=== PATIENT | female | born 1995 | race Caucasian/White ===

== ENCOUNTER 2019-01-03 03:00 | Emergency (ER) | payer BC ==
[2019-01-03] MEDS ORDERED: MORPHINE SULFATE 4 MG INJ IV ONE (03:26)
[2019-01-03] MEDS ORDERED: Sodium Chloride 0.9% 1000 ML 1,000 ML IV STA (03:26)
[2019-01-03] MEDS ORDERED: BENADRYL 50 MG/ML IV ONE (03:26)
[2019-01-03] MEDS ORDERED: Pepcid 20 MG VIAL IV ONE ×2 (03:26→03:34)
[2019-01-03] MEDS ORDERED: BENADRYL 50 MG/ML ONE (03:33)
[2019-01-03] MEDS ORDERED: MORPHINE SULFATE 4 MG INJ ONE (03:34)
[2019-01-03] MEDS ORDERED: Sodium Chloride 0.9% 1000 ML 1,000 ML ONE (03:34)
--- NOTE | 2019-01-03 03:43 | ERPHSYRPT ---
- History of Present Illness Time Seen by Provider: 01/03/19 03:25 Historian: patient Exam Limitations: no limitations Patient Subjective Stated Complaint: pt c/o diarrhea x4 pain, abd pain, gurgling , nausea Triage Nursing Assessment: PT AMBULATED TO RM 7, FRIENDS AT BEDSIDE. PT C/O DIARRHEA X4 DAYS, ABD PAIN AND GURGLING, INDIGESTION, NAUSEA BUT NO VOMITING. ABD SOFT WITH HYPERACTIVE BS X4 QUAD, NONTENDER ON PALPATION, STATES, "IT NAKUL GOES TO THE CENTER OF MY BACK". LUNGS CLEAR, HEART TONES REG. Physician History: Patient has had intermittent diarrhea with generalized abdominal cramping for the past four days. No recent travel history, no recent antibiotic usage, no history of hospitalization. Positive sick contact with similar type symptoms. Timing/Duration: day(s) (4), sudden Activities at Onset: none Quality: cramping Abdominal Pain Onset Location: generalized abdomen Pain Radiation: back Severity of Pain-Max: severe Severity of Pain-Current: moderate Modifying Factors: Worsens With: defecating Associated Symptoms: diarrhea, nausea, No back, No chest pain, No diaphoresis, No fever/chills, No fatigue, No headache, No heartburn, No loss of appetite, No neck pain, No rash, No shortness of breath, No syncope, No vomiting, No weakness Previous symptoms: no prior history, no recent treatment Allergies/Adverse Reactions: No Known Drug Allergies Allergy (Unverified 01/03/19 03:28) Home Medications: Medroxyprogesterone Acet [Depo-Provera] 150 mg IM CLARIFY 01/03/19 [History] Sertraline HCl 50 mg [Zoloft 50 mg Tablet] 50 mg PO HS 01/03/19 [History] Hx Tetanus, Diphtheria Vaccination/Date Given: No (UNKNOWN) Hx Influenza Vaccination/Date Given: No Hx Pneumococcal Vaccination/Date Given: No Immunizations Up to Date: No - Review of Systems Constitutional: No Fever, No Chills, No Fatigue Eyes: No Symptoms, No Vision Changes Ears, Nose, & Throat: No Symptoms, No Mouth Swelling, No Painful Swallowing Respiratory: No Cough, No Dyspnea Cardiac: No Chest Pain, No Edema, No Syncope Abdominal/Gastrointestinal: Abdominal Pain, Nausea, No Vomiting, No Diarrhea, No Hematemesis, No Hematochezia, No Melena Genitourinary Symptoms: No Dysuria, No Frequency, No Hematuria, No Flank Pain, No Vaginal Discharge Musculoskeletal: No Back Pain, No Neck Pain Skin: No Rash Neurological: No Dizziness, No Focal Weakness, No Headache, No Sensory Changes Psychological: No Symptoms Endocrine: No Symptoms, No Excessive Sweating All Other Systems: Reviewed and Negative - Past Medical History Pertinent Past Medical History: Yes Neurological History: No Pertinent History ENT History: Other Cardiac History: No Pertinent History Respiratory History: No Pertinent History Endocrine Medical History: No Pertinent History Musculoskeletal History: No Pertinent History, Fractures GI Medical History: GERD History: No Pertinent History Psycho-Social History: Anxiety, Depression Female Reproductive Disorders: No Pertinent History Other Medical History: FX LT ARM AGE 6, TROUBLE WITH VISION, BORN CROSSEYED - Past Surgical History Past Surgical History: Yes Neuro Surgical History: No Pertinent History Cardiac: No Pertinent History Respiratory: No Pertinent History Gastrointestinal: No Pertinent History Genitourinary: No Pertinent History Musculoskeletal: No Pertinent History Female Surgical History: No Pertinent History Other Surgical History: BORN CROSSEYED, 7 SURGERIES TO EYES - Social History Smoking Status: Former smoker Exposure to second hand smoke: No Drug Use: none Patient Lives Alone: No - Female History Hx Last Menstrual Period: UNKNOWN, ON SHOT Hx Now: No - Nursing Vital Signs Nursing Vital Signs: Initial Vital Signs Temperature 98.0 F 01/03/19 03:08 Pulse Rate 108 H 01/03/19 03:08 Respiratory Rate 17 01/03/19 03:08 Blood Pressure 150/97 01/03/19 03:08 O2 Sat by Pulse Oximetry 96 01/03/19 03:08 Pain Scale Pain Intensity 0 - Physical Exam General Appearance: no apparent distress, alert Eye Exam: PERRL/EOMI, eyes nml inspection, No scleral icterus, No pale conjunctivae Ears, Nose, Throat Exam: normal ENT inspection, pharynx normal, moist mucous membranes Neck Exam: normal inspection, non-tender, supple, full range of motion, No meningismus, No Brudzinski, No lymphadenopathy Respiratory Exam: normal breath sounds, lungs clear, No respiratory distress Cardiovascular Exam: regular rate/rhythm, normal heart sounds, normal peripheral pulses, capillary refill <2 sec Gastrointestinal/Abdomen Exam: soft, normal bowel sounds, No tenderness, No distention, No mass, No rebound Back Exam: normal inspection, normal range of motion, No CVA tenderness, No vertebral tenderness Extremity Exam: normal inspection, normal range of motion, pelvis stable Neurologic Exam: alert, oriented x 3, cooperative, maintainer plant II-XII nml as tested, normal mood/affect, nml cerebellar function, sensation nml, No motor deficits Skin Exam: normal color, warm, dry, No rash, No petechiae, No jaundice, No cyanosis SpO2 Interpretation: normal SpO2: 96 O2 Delivery: Room Air Ordered Tests: Active Orders 24 hr Category Date Time Status IV Insertion STAT Care 01/03/19 03:26 Active NPO (ED) STAT Care 01/03/19 03:26 Active AMYLASE Stat Lab 01/03/19 03:45 Completed CBC W DIFF Stat Lab 01/03/19 03:45 Completed CMP Stat Lab 01/03/19 03:45 Completed HCG,QUALITATIVE URINE Stat Lab 01/03/19 03:30 Completed LIPASE Stat Lab 01/03/19 03:45 Completed Lactic Acid Stat Lab 01/03/19 03:26 Completed MAG [MAGNESIUM] Stat Lab 01/03/19 03:45 Completed TROPONIN Q3H Lab 01/03/19 03:45 Completed TROPONIN Q3H Lab 01/03/19 06:30 Ordered TROPONIN Q3H Lab 01/03/19 09:30 Ordered TROPONIN Q3H Lab 01/03/19 12:30 Ordered TROPONIN Q3H Lab 01/03/19 15:30 Ordered UA W/RFX UR CULTURE Stat Lab 01/03/19 03:30 Completed Medication Summary Discontinued Medications Generic Name Dose Route Start Last Admin Trade Name Freq PRN Reason Stop Dose Admin Diphenhydramine HCl 25 mg 01/03/19 03:26 01/03/19 03:41 Benadryl 50 Mg/Ml IV 01/03/19 03:27 25 mg STAT ONE Administration Diphenhydramine HCl Confirm 01/03/19 03:33 Benadryl 50 Mg/Ml Administered 01/03/19 03:34 Dose 50 mg .ROUTE .STK-MED ONE Famotidine 20 mg 01/03/19 03:26 01/03/19 03:39 Pepcid 20 Mg Vial IV 01/03/19 03:27 20 mg STAT ONE Administration Famotidine Confirm 01/03/19 03:34 Pepcid 20 Mg Vial Administered 01/03/19 03:35 Dose 20 mg IV .STK-MED ONE Sodium Chloride 1,000 mls @ 999 mls/hr 01/03/19 03:26 01/03/19 03:37 Sodium Chloride 0.9% 1000 Ml IV 01/03/19 04:26 999 mls/hr .Q1H1M STA Administration Sodium Chloride Confirm 01/03/19 03:34 Sodium Chloride 0.9% 1000 Ml Administered 01/03/19 03:35 Dose 1,000 mls @ ud .ROUTE .STK-MED ONE Ketorolac Tromethamine 30 mg 01/03/19 03:46 01/03/19 03:51 Toradol 30 Mg Injection IV 01/03/19 03:47 30 mg STAT ONE Administration Ketorolac Tromethamine Confirm 01/03/19 03:50 Toradol 30 Mg Injection Administered 01/03/19 03:51 Dose 30 mg .ROUTE .STK-MED ONE Morphine Sulfate 4 mg 01/03/19 03:26 01/03/19 03:43 Morphine Sulfate 4 Mg Inj IV 01/03/19 03:27 4 mg STAT ONE Administration Morphine Sulfate Confirm 01/03/19 03:34 Morphine Sulfate 4 Mg Inj Administered 01/03/19 03:35 Dose 4 mg .ROUTE .STK-MED ONE Lab/Rad Data: Laboratory Result Diagrams 01/03/19 03:45 01/03/19 03:45 Laboratory Results 01/03/19 01/03/19 01/03/19 Range/Units 03:45 03:45 03:45 WBC (4.0-10.5) K/mm3 RBC (4.1-5.4) M/mm3 Hgb (12.0-16.0) gm/dl Hct (35-47) % MCV (78-100) fl MCH (26-32) pg MCHC (32-36) g/dl RDW (11.5-14.0) % Plt Count (150-450) K/mm3 MPV (6-9.5) fl Gran % (36.0-66.0) % Eos # (Auto) (0-0.5) Absolute Lymphs (auto) (1.0-4.6) Absolute Monos (auto) (0.0-1.3) Lymphocytes % (24.0-44.0) % Monocytes % (0.0-12.0) % Eosinophils % (0.00-5.0) % Basophils % (0.0-0.4) % Absolute Granulocytes (1.4-6.9) Basophils # (0-0.4) Sodium 143 (137-145) mmol/L Potassium 3.6 (3.5-5.1) mmol/L Chloride 109 H (98-107) mmol/L Carbon Dioxide 23 (22-30) mmol/L Anion Gap 14.8 (5-15) MEQ/L BUN 11 (7-17) mg/dL Creatinine 0.68 (0.52-1.04) mg/dL Estimated GFR > 60.0 ML/MIN Glucose 120 H (74-106) mg/dL Lactic Acid (0.4-2.0) Calcium 9.7 (8.4-10.2) mg/dL Magnesium 1.7 (1.6-2.3) mg/dL Total Bilirubin 0.50 (0.2-1.3) mg/dL AST 20 (14-36) U/L ALT 22 (0-35) U/L Alkaline Phosphatase 114 (38-126) U/L Troponin I < 0.012 (0.000-0.034) ng/mL Serum Total Protein 7.9 (6.3-8.2) g/dL Albumin 4.6 (3.5-5.0) g/dL Amylase (30-110) U/L Lipase (23-300) U/L Urine Color (YELLOW) Urine Appearance (CLEAR) Urine pH (5-6) Ur Specific Cutler (1.005-1.025) Urine Protein (Negative) Urine Ketones (NEGATIVE) Urine Blood (0-5) Jeff/ul Urine Nitrite (NEGATIVE) Urine Bilirubin (NEGATIVE) Urine Urobilinogen (0-1) mg/dL Ur Leukocyte Esterase (NEGATIVE) Urine WBC (Auto) (0-5) /HPF Urine RBC (Auto) (0-2) /HPF U Epithel Cells (Auto) (FEW) /HPF Urine Bacteria (Auto) (NEGATIVE) /HPF Urine Mucus (Auto) (NEGATIVE) /HPF Urine Culture Reflexed (NO) Urine Glucose (NEGATIVE) mg/dL Urine HCG, Qual (Negative) 01/03/19 01/03/1919 Range/Units 03:45 03:45 03:30 WBC 10.2 (4.0-10.5) K/mm3 RBC 4.86 (4.1-5.4) M/mm3 Hgb 13.9 (12.0-16.0) gm/dl Hct 42.0 (35-47) % MCV 86.4 (78-100) fl MCH 28.6 (26-32) pg MCHC 33.1 (32-36) g/dl RDW 13.7 (11.5-14.0) % Plt Count 229 (150-450) K/mm3 MPV 11.1 H (6-9.5) fl Gran % 64.7 (36.0-66.0) % Eos # (Auto) 0.39 (0-0.5) Absolute Lymphs (auto) 2.52 (1.0-4.6) Absolute Monos (auto) 0.69 (0.0-1.3) Lymphocytes % 24.6 (24.0-44.0) % Monocytes % 6.7 (0.0-12.0) % Eosinophils % 3.8 (0.00-5.0) % Basophils % 0.2 (0.0-0.4) % Absolute Granulocytes 6.62 (1.4-6.9) Basophils # 0.02 (0-0.4) Sodium (137-145) mmol/L Potassium (3.5-5.1) mmol/L Chloride (98-107) mmol/L Carbon Dioxide (22-30) mmol/L Anion Gap (5-15) MEQ/L BUN (7-17) mg/dL Creatinine (0.52-1.04) mg/dL Estimated GFR ML/MIN Glucose (74-106) mg/dL Lactic Acid (0.4-2.0) Calcium (8.4-10.2) mg/dL Magnesium (1.6-2.3) mg/dL Total Bilirubin (0.2-1.3) mg/dL AST (14-36) U/L ALT (0-35) U/L Alkaline Phosphatase (38-126) U/L Troponin I (0.000-0.034) ng/mL Serum Total Protein (6.3-8.2) g/dL Albumin (3.5-5.0) g/dL Amylase 68 (30-110) U/L Lipase 53 (23-300) U/L Urine Color YELLOW (YELLOW) Urine Appearance CLOUDY (CLEAR) Urine pH 5.0 (5-6) Ur Specific Cutler 1.029 (1.005-1.025) Urine Protein NEGATIVE (Negative) Urine Ketones NEGATIVE (NEGATIVE) Urine Blood NEGATIVE (0-5) Jeff/ul Urine Nitrite NEGATIVE (NEGATIVE) Urine Bilirubin NEGATIVE (NEGATIVE) Urine Urobilinogen 2 (0-1) mg/dL Ur Leukocyte Esterase NEGATIVE (NEGATIVE) Urine WBC (Auto) 0-2 (0-5) /HPF Urine RBC (Auto) 0-2 (0-2) /HPF U Epithel Cells (Auto) RARE (FEW) /HPF Urine Bacteria (Auto) RARE (NEGATIVE) /HPF Urine Mucus (Auto) SLIGHT (NEGATIVE) /HPF Urine Culture Reflexed NO (NO) Urine Glucose NEGATIVE (NEGATIVE) mg/dL Urine HCG, Qual (Negative) 01/03/19 01/03/19 Range/Units 03:30 03:26 WBC (4.0-10.5) K/mm3 RBC (4.1-5.4) M/mm3 Hgb (12.0-16.0) gm/dl Hct (35-47) % MCV (78-100) fl MCH (26-32) pg MCHC (32-36) g/dl RDW (11.5-14.0) % Plt Count (150-450) K/mm3 MPV (6-9.5) fl Gran % (36.0-66.0) % Eos # (Auto) (0-0.5) Absolute Lymphs (auto) (1.0-4.6) Absolute Monos (auto) (0.0-1.3) Lymphocytes % (24.0-44.0) % Monocytes % (0.0-12.0) % Eosinophils % (0.00-5.0) % Basophils % (0.0-0.4) % Absolute Granulocytes (1.4-6.9) Basophils # (0-0.4) Sodium (137-145) mmol/L Potassium (3.5-5.1) mmol/L Chloride (98-107) mmol/L Carbon Dioxide (22-30) mmol/L Anion Gap (5-15) MEQ/L BUN (7-17) mg/dL Creatinine (0.52-1.04) mg/dL Estimated GFR ML/MIN Glucose (74-106) mg/dL Lactic Acid 1.6 (0.4-2.0) Calcium (8.4-10.2) mg/dL Magnesium (1.6-2.3) mg/dL Total Bilirubin (0.2-1.3) mg/dL AST (14-36) U/L ALT (0-35) U/L Alkaline Phosphatase (38-126) U/L Troponin I (0.000-0.034) ng/mL Serum Total Protein (6.3-8.2) g/dL Albumin (3.5-5.0) g/dL Amylase (30-110) U/L Lipase (23-300) U/L Urine Color (YELLOW) Urine Appearance (CLEAR) Urine pH (5-6) Ur Specific Cutler (1.005-1.025) Urine Protein (Negative) Urine Ketones (NEGATIVE) Urine Blood (0-5) Jeff/ul Urine Nitrite (NEGATIVE) Urine Bilirubin (NEGATIVE) Urine Urobilinogen (0-1) mg/dL Ur Leukocyte Esterase (NEGATIVE) Urine WBC (Auto) (0-5) /HPF Urine RBC (Auto) (0-2) /HPF U Epithel Cells (Auto) (FEW) /HPF Urine Bacteria (Auto) (NEGATIVE) /HPF Urine Mucus (Auto) (NEGATIVE) /HPF Urine Culture Reflexed (NO) Urine Glucose (NEGATIVE) mg/dL Urine HCG, Qual NEGATIVE (Negative) - Progress Progress: improved Progress Note: 01/03/19 04:49 Abdominal cramping has resolved. No further nausea and no episodes of diarrhea while in the emergency department. Patient has no abdominal pain or CVA tenderness on repeat evaluation. Counseled pt/family regarding: lab results, diagnosis, need for follow-up - Departure Departure Disposition: Home Clinical Impression: Generalized abdominal cramping, Nausea, Elevated blood pressure reading without diagnosis of hypertension Diarrhea Qualifiers: Diarrhea type: unspecified type Qualified Code(s): R19.7 - Diarrhea, unspecified Condition: Good Critical Care Time: No Referrals: DONNA LYLE [Primary Care Provider] - 01/04/19 Instructions: Diarrhea and Traveler's Diarrhea, Adult (DC), Acute Abdomen ( Belly Pain), Adult (DC), Nausea and Vomiting, Adult (DC) Additional Instructions: Return immediately to the emergency department if any worse abdominal pain, new fever, uncontrollable diarrhea or vomiting or any other concerning signs and symptoms that were not present at today's emergency department visit for immediate re-evaluation in the emergency department. Discharge/Care Plan ORIANA MONTERO was seen on 01/03/19 in the Emergency Room. The patient was counseled regarding Diagnosis,Lab results, and need for follow up and when to return to the Emergency Room. Prescriptions given: Lomotil and Phenergan Discharge Note I have spoken with the patient and friends in the room. I have explained the patient's condition, diagnosis and treatment plan based on the information available to me at this time. I have answered the patient's and/or caregiver's questions and addressed any concerns. The patient and friends have as good understanding of the patient's diagnosis, condition and treatment plan as can be expected at this point. The vital signs have been stable. The patient's condition is stable and appropriate for discharge from the emergency department. The patient will pursue further outpatient evaluation with the primary care physician or other designated or consulting physician as outlined in the discharge instructions. The patient and friends are agreeable to this plan of care and follow-up instructions have been explained in detail. The patient and friends have received these instruction. The patient and friends are aware that any significant change in condition or worsening of symptoms should prompt an immediate return to this or the closest emergency department or call 911. Forms: Work/School Release Form Prescriptions: Promethazine HCl 25 mg [Phenergan 25 mg] 25 mg PO Q6H PRN PRN #12 tablet PRN Reason: Nausea Diphenoxylate HCl/Atropine [Lomotil Tablet] 1 each PO TID PRN #10 tablet PRN Reason: Diarrhea
[2019-01-03] MEDS ORDERED: TORAdol 30 mg Injection IV ONE (03:46)
[2019-01-03] MEDS ORDERED: TORAdol 30 mg Injection ONE (03:50)
[2019-01-03 03:54] LABS: Appearance CLOUDY (CLEAR); Bacteria RARE /HPF (NEGATIVE); Bilirubin NEGATIVE (NEGATIVE); Blood NEGATIVE Ery/ul (0-5); Epithelial Cells RARE /HPF (FEW); Glucose NEGATIVE (NEGATIVE); Ketones NEGATIVE (NEGATIVE); Leukocyte Esterase NEGATIVE (NEGATIVE); Mucus SLIGHT /HPF (NEGATIVE); Nitrite NEGATIVE (NEGATIVE); Protein,Urine Dip NEGATIVE (Negative); RBC 0-2 /HPF (0-2); Specific Gravity 1.029 (1.005-1.025); Urobilinogen 2 mg/dL (0-1); WBC 0-2 /HPF (0-5)
[2019-01-03 04:04] LABS: Absolute Neutrophil Ct (ANC) 6.62 (1.4-6.9); BASOPHIL % 0.2 % (0.0-0.4); Basophil (Absolute #) 0.02 (0-0.4); Eosinophil % 3.8 % (0.00-5.0); Eosinophil (Absolute #) 0.39 (0-0.5); Hemoglobin 13.9 gm/dl (12.0-16.0); Lymphocyte (Absolute #) 2.52 (1.0-4.6); Lymphocytes % 24.6 % (24.0-44.0); Mean Cell Volume 86.4 fl (78-100); Mean Corpuscular Hemoglobin 28.6 pg (26-32); Mean Corpuscular Hgb Concent. 33.1 g/dl (32-36); Mean Platelet Volume 11.1 fl (6-9.5); Monocyte (Absolute #) 0.69 (0.0-1.3); Monocytes % 6.7 % (0.0-12.0); Neutrophil % 64.7 % (36.0-66.0); Platelet Count 229 K/mm3 (150-450); Red Blood Count 4.86 M/mm3 (4.1-5.4); Red Cell Distribution Width 13.7 % (11.5-14.0); White Blood Count 10.2 K/mm3 (4.0-10.5)
[2019-01-03 04:06] LABS: AMYLASE 68 U/L (30-110); LIPASE 53 U/L (23-300)
[2019-01-03 04:34] LABS: ALBUMIN 4.6 g/dL (3.5-5.0); ALKALINE PHOSPHATASE 114 U/L (38-126); ANION GAP 14.8 MEQ/L (5-15); BLOOD UREA NITROGEN 11 mg/dL (7-17); CHLORIDE 109 mmol/L (98-107); Calcium 9.7 mg/dL (8.4-10.2); Carbon Dioxide 23 mmol/L (22-30); Creatinine 1 0.68 mg/dL (0.52-1.04); Glucose 120 mg/dL (74-106); Potassium 3.6 mmol/L (3.5-5.1); SGOT/AST 20 U/L (14-36); SGPT/ALT 22 U/L (0-35); SODIUM 143 mmol/L (137-145); Total Protein 7.9 g/dL (6.3-8.2)
[2019-01-03 04:52] VITALS: BP 122/83; PULSE 96
[2019-01-03 04:54] VITALS: O2SAT 96
== END 2019-01-03 04:58 | disposition home or self-care (01) ==
LOC: ED 03:00
DX: R10.84 Generalized abdominal pain (principal); R11.0 Nausea; R03.0 Elevated blood-pressure reading, without diagnosis of hypertension; R19.7 Diarrhea, unspecified
CPT/HCPCS: 36000; 36415; 80053; 81001; 82150; 83605; 83690; 83735; 84484; 84703; 85025; 96374; 96375; 99284; J1200; J1885; J2270

== ENCOUNTER 2019-01-22 22:55 | Emergency (ER) | payer BC ==
[2019-01-22] MEDS ORDERED: Sodium Chloride 0.9% 1000 ML 1,000 ML IV STA (23:27)
[2019-01-22] MEDS ORDERED: PROTONIX 40 MG IV*** 80 MG in Sodium Chloride 0.9% 500 ML 500 ML IV SCH (23:30)
[2019-01-22] MEDS ORDERED: PROTONIX 40 MG IV IV ONE ×2 (23:37→23:39)
[2019-01-22] MEDS ORDERED: Sodium Chloride 0.9% 1000 ML 1,000 ML ONE (23:40)
[2019-01-22 23:55] LABS: Absolute Neutrophil Ct (ANC) 6.44 (1.4-6.9); BASOPHIL % 0.3 % (0.0-0.4); Basophil (Absolute #) 0.03 (0-0.4); Eosinophil % 1.4 % (0.00-5.0); Eosinophil (Absolute #) 0.16 (0-0.5); Hematocrit 42.7 % (35-47); Hemoglobin 14.2 gm/dl (12.0-16.0); Lymphocyte (Absolute #) 4.31 (1.0-4.6); Lymphocytes % 36.5 % (24.0-44.0); Mean Cell Volume 85.7 fl (78-100); Mean Corpuscular Hemoglobin 28.5 pg (26-32); Mean Corpuscular Hgb Concent. 33.3 g/dl (32-36); Mean Platelet Volume 10.7 fl (6-9.5); Monocyte (Absolute #) 0.86 (0.0-1.3); Monocytes % 7.3 % (0.0-12.0); Neutrophil % 54.5 % (36.0-66.0); Platelet Count 250 K/mm3 (150-450); Red Blood Count 4.98 M/mm3 (4.1-5.4); Red Cell Distribution Width 13.6 % (11.5-14.0); White Blood Count 11.8 K/mm3 (4.0-10.5)
[2019-01-23 00:02] LABS: INR 1.02 (0.8-3.0); PROTIME 11.5 SECONDS (9.95-12.35)
[2019-01-23 00:05] LABS: PTT 35.2 SECONDS (25.3-37.0)
[2019-01-23 00:07] LABS: ALBUMIN 4.5 g/dL (3.5-5.0); ALKALINE PHOSPHATASE 121 U/L (38-126); ANION GAP 13.1 MEQ/L (5-15); BLOOD UREA NITROGEN 14 mg/dL (7-17); CHLORIDE 109 mmol/L (98-107); Calcium 10.2 mg/dL (8.4-10.2); Carbon Dioxide 25 mmol/L (22-30); Creatinine 1 0.78 mg/dL (0.52-1.04); Glucose 111 mg/dL (74-106); Potassium 4.1 mmol/L (3.5-5.1); SGOT/AST 22 U/L (14-36); SGPT/ALT 26 U/L (0-35); SODIUM 143 mmol/L (137-145); Total Protein 7.8 g/dL (6.3-8.2)
[2019-01-23 00:24] LABS: Amourphous Crystal FEW /HPF (NEGATIVE); Appearance SLIGHTLY CLOUDY (CLEAR); Bacteria MANY /HPF (NEGATIVE); Bilirubin NEGATIVE (NEGATIVE); Blood NEGATIVE Ery/ul (0-5); Glucose NEGATIVE (NEGATIVE); Ketones NEGATIVE (NEGATIVE); Leukocyte Esterase NEGATIVE (NEGATIVE); Mucus SLIGHT /HPF (NEGATIVE); Nitrite NEGATIVE (NEGATIVE); Protein,Urine Dip NEGATIVE (Negative); Specific Gravity 1.021 (1.005-1.025); Urobilinogen 4 mg/dL (0-1)
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
[2019-01-23 01:06] VITALS: BP 144/100; PULSE 97
[2019-01-23 01:09] VITALS: O2SAT 95
--- NOTE | 2019-01-23 09:10 | XRAY ---
Indication: GI bleed 3 days. Positive occult blood. Multiple contiguous axial images obtained through the abdomen and pelvis using 80 cc Isovue 370 contrast only. Comparison: None. Lung bases demonstrates minimal bilateral dependent atelectasis. Heart is not enlarged. Stomach is distended with food/fluid. Noncontrasted stomach and bowel loops appear nonobstructed. Normal appendix. There is mild diffuse fecal debris throughout. No free fluid/air. Spleen is enlarged measuring 12.8 cm in greatest axial dimension. Remaining liver, gallbladder, pancreas, spleen, adrenal glands, kidneys, ureters, bladder, uterus, and aorta appear unremarkable. No pathologic retroperitoneal lymphadenopathy. Osseous structures intact with incidental bilateral L5 spondylolysis without spondylolisthesis. Impression: 1. Fecal stasis without obstruction, splenomegaly, and L5 spondylolysis without spondylolisthesis. 2. Remaining CT abdomen/pelvis with contrast exam is negative. Comment: Preliminary interpretation was made by [facility]. No critical discrepancy. CT DI 7.21
== END 2019-01-23 01:35 | disposition home or self-care (01) ==
LOC: ED 22:55
DX: K62.5 Hemorrhage of anus and rectum (principal)
CPT/HCPCS: 36415; 74177; 80053; 81001; 81025; 82272; 83605; 85025; 85610; 85730; 96374; 99284

== ENCOUNTER 2019-10-03 08:20 | Emergency (ER) | payer BC ==
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
[2019-10-03 10:23] VITALS: BP 125/90; PULSE 101
[2019-10-03 10:39] VITALS: O2SAT 98
== END 2019-10-03 10:44 | disposition home or self-care (01) ==
LOC: ED 08:20
DX: S06.0X0A Concussion without loss of consciousness, initial encounter (principal); V89.2XXA Person injured in unspecified motor-vehicle accident, traffic, initial encounter; Y93.9 Activity, unspecified; Y92.9 Unspecified place or not applicable
CPT/HCPCS: 70450; 71045; 99284

== ENCOUNTER 2021-04-21 15:09 | Emergency (ER) | payer BC ==
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
[2021-04-21 15:31] VITALS: BP 135/93; PULSE 120; O2SAT 99
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
== END 2021-04-21 17:09 | disposition home or self-care (01) ==
LOC: ED 15:09
DX: S80.211A Abrasion, right knee, initial encounter (principal); S80.01XA Contusion of right knee, initial encounter; V43.53XA Car driver injured in collision with pick-up truck in traffic accident, initial encounter; K21.9 Gastro-esophageal reflux disease without esophagitis
CPT/HCPCS: 73562; 99283

== ENCOUNTER 2023-06-18 11:36 | Emergency (ER) | payer OTHER ==
--- NOTE | 2023-06-18 11:48 | ERPHSYRPT ---
- History of Present Illness Time Seen by Provider: 06/18/23 11:48 Source: patient Exam Limitations: no limitations Physician History: This is a 28-year-old white female patient of nurse practitioner Hilton who presents with intermittent back pain that began approximately 1 month ago and has associated bilateral upper quadrant abdominal pain. She has had 4-5 episodes of this location of pain. Patient states that when the episodes come on it is moderate to severe in intensity and is circumferential in the bilateral upper quadrants and into her back. She has not suffered any fall or acute trauma to the area. Her last episode was 2 days ago. Today she states that she has no pain. She does not know what brings it on. She has not noticed any dysuria or hematuria. She has not noticed any urgency or frequency of her urine. Patient has a history of hypertension, anxiety and gastroesophageal reflux disease. Timing/Duration: week(s) (4 weeks ago), intermittent Method of Injury: other (Injury) Quality: cramping, other (Squeezing) Severity of Pain-Max: moderate Severity of Pain-Current: none Associated Symptoms: No urinary incontinence, No loss of bowel control, No nausea, No vomiting, No problems urinating, No numbness in legs/feet, No lower back pain Previous symptoms: same symptoms as today, no recent treatment Allergies/Adverse Reactions: No Known Drug Allergies Allergy (Verified 06/18/23 11:58) Home Medications: Buspirone HCl 5 mg [Buspar 5 mg] 10 mg PO BID 06/18/23 [History] Citalopram Hydrobromide 20 mg* [ceLEXa 20 MG] 20 mg PO DAILY 06/18/23 [History] Hydroxyzine HCl 25 mg [Atarax 25 mg] 25 mg PO BID 06/18/23 [History] Metoprolol Succinate 25 mg Xl* [Toprol-Xl 25MG Tablets] 25 mg PO DAILY 06/18/23 [History] Norethindrone-E.estradiol-Iron [Jennie Fe 1-20 Tablet] 1 tab PO DAILY 06/18/23 [History] Hx Tetanus, Diphtheria Vaccination/Date Given: No (UNKNOWN) Hx Influenza Vaccination/Date Given: No Hx Pneumococcal Vaccination/Date Given: No Travel Risk - International Travel Have you traveled outside of the country in past 3 weeks: No - Emerging Infectious Disease Are you exhibiting symptoms associated with any current EIDs: No - Review of Systems Constitutional: No Symptoms Eyes: No Symptoms Ears, Nose, & Throat: No Symptoms Respiratory: No Symptoms Cardiac: No Symptoms Abdominal/Gastrointestinal: Abdominal Pain (Bilateral upper quadrants. No pain at this time) Genitourinary Symptoms: No Symptoms Musculoskeletal: Back Pain (No pain at this time) Skin: No Symptoms Neurological: No Symptoms Psychological: No Symptoms Endocrine: No Symptoms Hematologic/Lymphatic: No Symptoms Immunological/Allergic: No Symptoms All Other Systems: Reviewed and Negative - Past Medical History Pertinent Past Medical History: Yes Neurological History: No Pertinent History ENT History: Other Cardiac History: No Pertinent History Respiratory History: No Pertinent History Endocrine Medical History: No Pertinent History Musculoskeletal History: No Pertinent History, Fractures GI Medical History: GERD History: No Pertinent History Psycho-Social History: Anxiety, Depression Female Reproductive Disorders: No Pertinent History Other Medical History: FX LT ARM AGE 6, TROUBLE WITH VISION, BORN CROSSEYED - Past Surgical History Past Surgical History: Yes Neuro Surgical History: No Pertinent History Cardiac: No Pertinent History Respiratory: No Pertinent History Gastrointestinal: No Pertinent History Genitourinary: No Pertinent History Musculoskeletal: No Pertinent History Female Surgical History: No Pertinent History Other Surgical History: BORN CROSSEYED, 7 SURGERIES TO EYES - Social History Smoking Status: Former smoker Exposure to second hand smoke: No Drug Use: none Patient Lives Alone: No - Nursing Vital Signs Nursing Vital Signs: Initial Vital Signs Temperature 97.7 F 06/18/23 11:59 Pulse Rate 72 06/18/23 11:59 Respiratory Rate 17 06/18/23 11:59 Blood Pressure 133/98 06/18/23 11:59 O2 Sat by Pulse Oximetry 98 06/18/23 11:59 Pain Scale Pain Intensity 0 - Physical Exam General Appearance: no apparent distress, alert, anxiety Eye Exam: PERRL/EOMI, eyes nml inspection Ears, Nose, Throat Exam: normal ENT inspection, moist mucous membranes Neck Exam: normal inspection, non-tender, supple, full range of motion Respiratory Exam: normal breath sounds, lungs clear, airway intact, No chest tenderness, No respiratory distress Cardiovascular Exam: regular rate/rhythm, normal heart sounds, normal peripheral pulses Gastrointestinal Exam: soft, normal bowel sounds, No tenderness Pelvic Exam: not done Rectal Exam: not done Back Exam: normal inspection, normal range of motion, No CVA tenderness, No vertebral tenderness Extremity Exam: normal inspection, normal range of motion, pelvis stable Neurologic Exam: alert, oriented x 3, cooperative, 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-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 nml as tested, normal mood/affect, nml cerebellar function, nml station & gait, sensation nml Skin Exam: normal color, warm, dry Lymphatic Exam: No adenopathy SpO2 Interpretation: normal O2 Delivery: Room Air - Course Nursing assessment & vital signs reviewed: Yes Ordered Tests: Active Orders 24 hr Category Date Time Status ABDOMEN AND PELVIS W/0 CONTRAS [CT] Stat Exams 06/18/23 12:29 Completed CULTURE,URINE Stat Lab 06/18/23 13:16 Received HCG QUALITATIVE, URINE Stat Lab 06/18/23 13:16 Completed UA W/RFX UR CULTURE Stat Lab 06/18/23 13:16 Completed Lab/Rad Data: Laboratory Results 06/18/23 06/18/23 Range/Units 13:16 13:16 Urine Color Yellow (Yellow) Urine Appearance Cloudy A (Clear) Urine pH 7.5 (4.6-8.0) Ur Specific [place] 1.020 (1.005-1.030) Urine Protein Negative (Negative) Urine Glucose (UA) Negative (Negative) mg/dL Urine Ketones Negative (Negative) Urine Blood Negative (Negative) Urine Nitrite Negative (Negative) Urine Bilirubin Negative (Negative) Urine Urobilinogen 0.2 (0.2) mg/dL Ur Leukocyte Esterase Negative (Negative) U Hyaline Cast (Auto) NONE SEEN (0-2) /LPF Urine Microscopic RBC 3-5 (0-5) /HPF Urine Microscopic WBC 6-10 A (0-5) /HPF Ur Epithelial Cells Rare (None Seen) /HPF Urine Bacteria Moderate A (None Seen) /HPF Urine Culture Reflexed YES (NO) Urine HCG, Qual NEGATIVE (NEGATIVE) - Progress Progress: unchanged, re-examined Progress Note: 06/18/23 12:54 My medical decision making and assignment of low to moderate complexity of this patient's medical issue today is based on review the patient's past medical history, review the patient's medication list, review of patient drug allergy list, history present illness and physical findings on examination. Although the patient has no complaints of pain at this time, she is here now and together, we decided to perform a CAT scan of the abdomen pelvis as well as a urinalysis. Differential diagnosis includes muscle skeletal pain, urinary tract infection, ureterolithiasis. 06/18/23 14:12 I interpreted the patient's laboratory data results. The urinalysis reveals urinary tract infection. CT scan of the abdomen pelvis without contrast was interpreted by the radiologist and I reviewed the impression. The patient states stable incidental L5 spondylosis without listhesis. Remainder of the CT scan of the abdomen pelvis without contrast is negative Counseled pt/family regarding: lab results, diagnosis, rad results Medical Desision Making - Diagnostic Testing Diagnostic test were ordered, analyzed, and reviewed by me: Yes Radiological Interpretation: Reviewed by me, Teleradiologist Report - Risk of complications The pt has a mod risk of morbidity or mortality based on: Need for prescription drug management - Departure Departure Disposition: Home Clinical Impression: UTI (urinary tract infection) Condition: Stable Critical Care Time: No Referrals: CARLOS ROONEY CORE RESCUER [Primary Care Provider] - Follow up/PCP as directed Additional Instructions: Drink plenty of fluids. Take your antibiotic as prescribed. Use Tylenol and ibuprofen for pain and fever control. Call your primary care provider today, 06/18/2023 to make arrangements for follow-up appointment to be seen in the next 5 to 7 days. Prescriptions: Ciprofloxacin [Cipro 500 MG] 500 mg PO BID #14 tablet
[2023-06-18 12:11] VITALS: TEMP 97.7
[2023-06-18 13:07] VITALS: BP 121/90; PULSE 74; RESP 14; O2SAT 96
[2023-06-18 13:25] LABS: HCG URINE TEST NEGATIVE (NEGATIVE)
[2023-06-18 13:27] LABS: Appearance Cloudy (Clear); Bacteria Moderate /HPF (None Seen); Bilirubin Negative (Negative); Blood Negative (Negative); Epithelial Cells Rare /HPF (None Seen); Glucose, Urine Negative (Negative); Hyaline Casts NONE SEEN /LPF (0-2); Ketones Negative (Negative); Leukocyte Esterase Negative (Negative); Nitrite Negative (Negative); Ph 7.5 (4.6-8.0); Protein,Urine Dip Negative (Negative); Urobilinogen 0.2 mg/dL (0.2)
[2023-06-18 13:28] LABS: ADD URINE CULTURE? YES (NO)
--- NOTE | 2023-06-18 14:08 | XRAY ---
Indication: Upper abdomen pain. Multiple contiguous axial images obtained through abdomen and pelvis without contrast. Comparison: January 23, 2019 Lung bases again demonstrates minimal dependent atelectasis. No infiltrate or effusion. Heart not enlarged. Noncontrasted stomach and bowel loops appear nonobstructed again with normal appendix. No free fluid/air. Remaining liver, gallbladder, pancreas, spleen, adrenal glands, kidneys, ureters, bladder, uterus, and aorta are unremarkable for noncontrast exam. Osseous structures intact again with bilateral L5 spondylolysis without listhesis. Impression: Stable incidental L5 spondylolysis without listhesis. Remaining CT abdomen/pelvis without contrast exam continues to be negative.
== END 2023-06-18 14:30 | disposition home or self-care (01) ==
LOC: ED 11:36
DX: N39.0 Urinary tract infection, site not specified (principal); M54.6 Pain in thoracic spine; R10.11 Right upper quadrant pain; R10.12 Left upper quadrant pain; I10 Essential (primary) hypertension; Z79.899 Other long term (current) drug therapy
CPT/HCPCS: 74176; 81001; 81025; 87086; 99283

== ENCOUNTER 2023-07-07 13:45 | Emergency (ER) | payer OTHER ==
[2023-07-07 14:07] VITALS: PULSE 84; RESP 18; TEMP 96.8; O2SAT 98
[2023-07-07 14:44] LABS: ADD URINE CULTURE? YES (NO); Appearance Cloudy (Clear); Bacteria Moderate /HPF (None Seen); Bilirubin Negative (Negative); Blood Negative (Negative); Epithelial Cells Few /HPF (None Seen); Glucose, Urine Negative (Negative); Hyaline Casts NONE SEEN /LPF (0-2); Ketones Trace (Negative); Leukocyte Esterase Negative (Negative); Nitrite Negative (Negative); Ph 7.5 (4.6-8.0); Protein,Urine Dip Trace (Negative); RBC 0-2 /HPF (0-5); Specific Gravity >=1.030 (1.005-1.030)
--- NOTE | 2023-07-07 14:49 | ERPHSYRPT ---
- History of Present Illness Time Seen by Provider: 07/07/23 14:40 Source: patient Exam Limitations: no limitations Patient Subjective Stated Complaint: pt here for pain to right lower back started today, she is worried she has a UTI.no fever, no burning with urination Triage Nursing Assessment: pt alert, walked in, resp easy, skin w/d/p. moves all ext well, abd soft. Physician History: For the past 6.5 hours pt has had dull achy right lower back pain up to a 6/10; denies trauma, lifting, dysuria, fever. Allergies/Adverse Reactions: No Known Drug Allergies Allergy (Verified 07/07/23 14:05) Home Medications: Buspirone HCl 5 mg [Buspar 5 mg] 10 mg PO BID 06/18/23 [History] Citalopram Hydrobromide 20 mg* [ceLEXa 20 MG] 20 mg PO DAILY 06/18/23 [Hi story] Hydroxyzine HCl 25 mg [Atarax 25 mg] 25 mg PO BID 06/18/23 [History] Metoprolol Succinate 25 mg Xl* [Toprol-Xl 25MG Tablets] 25 mg PO DAILY 06/18/23 [History] Norethindrone-E.estradiol-Iron [Jennie Fe 1-20 Tablet] 1 tab PO DAILY 06/18/23 [History] Hx Tetanus, Diphtheria Vaccination/Date Given: No (UNKNOWN) Hx Influenza Vaccination/Date Given: No Hx Pneumococcal Vaccination/Date Given: No Immunizations Up to Date: Yes Travel Risk - International Travel Have you traveled outside of the country in past 3 weeks: No - Emerging Infectious Disease Are you exhibiting symptoms associated with any current EIDs: No - Review of Systems Constitutional: No Fever Respiratory: No Dyspnea Cardiac: No Chest Pain Abdominal/Gastrointestinal: No Abdominal Pain Genitourinary Symptoms: No Dysuria Musculoskeletal: Back Pain Neurological: No Headache - Past Medical History Pertinent Past Medical History: Yes Neurological History: No Pertinent History ENT History: Other Cardiac History: No Pertinent History Respiratory History: No Pertinent History Endocrine Medical History: No Pertinent History Musculoskeletal History: No Pertinent History, Fractures GI Medical History: GERD History: No Pertinent History Psycho-Social History: Anxiety, Depression Female Reproductive Disorders: No Pertinent History Other Medical History: FX LT ARM AGE 6, TROUBLE WITH VISION, BORN CROSSEYED - Past Surgical History Past Surgical History: Yes Neuro Surgical History: No Pertinent History Cardiac: No Pertinent History Respiratory: No Pertinent History Gastrointestinal: No Pertinent History Genitourinary: No Pertinent History Musculoskeletal: No Pertinent History Female Surgical History: No Pertinent History Other Surgical History: BORN CROSSEYED, 7 SURGERIES TO EYES - Female History Hx Last Menstrual Period: 2-4 days ago Hx Now: No - Social History Smoking Status: Former smoker Exposure to second hand smoke: No Drug Use: none Patient Lives Alone: No - Nursing Vital Signs Nursing Vital Signs: Initial Vital Signs Temperature 96.8 F 07/07/23 14:06 Pulse Rate 84 07/07/23 14:06 Respiratory Rate 18 07/07/23 14:06 Blood Pressure 141/111 07/07/23 14:06 O2 Sat by Pulse Oximetry 98 07/07/23 14:06 Pain Scale Pain Intensity 5 - Physical Exam General Appearance: alert Eye Exam: PERRL/EOMI Ears, Nose, Throat Exam: TMs normal, pharynx normal Neck Exam: normal inspection Respiratory Exam: lungs clear Cardiovascular Exam: normal heart sounds Gastrointestinal Exam: normal bowel sounds Back Exam: normal inspection, No CVA tenderness Extremity Exam: No pedal edema Neurologic Exam: alert, cooperative Skin Exam: warm, dry SpO2 Interpretation: normal SpO2: 98 O2 Delivery: Room Air - Course Nursing assessment & vital signs reviewed: Yes Ordered Tests: Active Orders 24 hr Category Date Time Status CULTURE,URINE Stat Lab 07/07/23 13:56 Received UA W/RFX UR CULTURE Stat Lab 07/07/23 13:56 Completed Lab/Rad Data: Laboratory Results 07/07/23 Range/Units 13:56 Urine Color Yellow (Yellow) Urine Appearance Cloudy A (Clear) Urine pH 7.5 (4.6-8.0) Ur Specific [place] >=1.030 A (1.005-1.030) Urine Protein Trace A (Negative) Urine Glucose (UA) Negative (Negative) mg/dL Urine Ketones Trace A (Negative) Urine Blood Negative (Negative) Urine Nitrite Negative (Negative) Urine Bilirubin Negative (Negative) Urine Urobilinogen 1.0 A (0.2) mg/dL Ur Leukocyte Esterase Negative (Negative) U Hyaline Cast (Auto) NONE SEEN (0-2) /LPF Urine Microscopic RBC 0-2 (0-5) /HPF Urine Microscopic WBC 3-5 (0-5) /HPF Ur Epithelial Cells Few (None Seen) /HPF Urine Bacteria Moderate A (None Seen) /HPF Urine Culture Reflexed YES (NO) - Progress Progress: unchanged Counseled pt/family regarding: lab results, diagnosis, need for follow-up Medical Desision Making - Diagnostic Testing Diagnostic test were ordered, analyzed, and reviewed by me: Yes - Departure Departure Disposition: Home Clinical Impression: UTI (urinary tract infection) Condition: Stable Critical Care Time: No Referrals: CARLOS ROONEY NP [Primary Care Provider] - Follow up/PCP as directed Instructions: Urinary Tract Infection, Adult (DC) Additional Instructions: Follow up with private doctor tomorrow. Forms: Work/School Release Form Prescriptions: Ibuprofen 600 mg PO Q6H PRN PRN #14 tablet PRN Reason: Pain Nitrofurantoin Macro 100 mg [Macrobid 100MG Capsule] 100 mg PO BID #14 cap
[2023-07-07] MEDS ORDERED: Rocephin 1000 MG INJ ONE (14:58)
[2023-07-07] MEDS ORDERED: TORAdol 30 mg Injection ONE (14:58)
[2023-07-07] MEDS: TORAdol 30 mg Injection IM ONE (15:04)
[2023-07-07] MEDS: Rocephin 1000 MG INJ IM ONE (15:04)
[2023-07-07 15:07] VITALS: BP 140/109
== END 2023-07-07 15:12 | disposition home or self-care (01) ==
LOC: ED 13:45
DX: N39.0 Urinary tract infection, site not specified (principal); M54.50 Low back pain, unspecified; Z79.899 Other long term (current) drug therapy
CPT/HCPCS: 81001; 87086; 96372; 99283; J0696; J1885